=== PATIENT | male | born 1985 | race African-American/Black ===

== ENCOUNTER 2017-07-16 00:14 | Emergency (ER) | payer SELFPAY ==
[~2017-07-16] VITALS: Ht 175.3 cm; Wt 72.8 kg
[2017-07-16 00:22] VITALS: BP 145/86
== END 2017-07-16 00:43 | disposition left against medical advice (07) ==
LOC: EDBD 00:14 → ED 00:37
DX: R06.02 Shortness of breath (principal); Z53.21 Procedure and treatment not carried out due to patient leaving prior to being seen by health care provider